=== PATIENT | female | born 1980 | race Caucasian/White ===

== ENCOUNTER 2017-12-11 19:49 | Emergency (ER) | payer OTHER ==
--- NOTE | 2017-12-11 20:07 | PDOC ---
Rapid Medical Evaluation Chief Complaint: Rash Time Seen by Provider: 12/11/17 20:03 Medical Evaluation: 12/11/17 20:05 I have performed a brief in person evaluation of this patient. The patient presents with a CC of: Rash HPI: Pt is a 37 YO female who states over the past 2 weeks she has had a pruritic rash x 2 weeks. She denies changes in soaps, lotions, laundry detergents and foods. Denies pain. PE: Skin: Diffuse maculopapular lesions on the UEs. No signs of secondary infection. Heart: RRR Lungs: Clear MS: Moves all extremities without difficulty Neuro: Appropriate affect Psych: appropriate affect I have ordered: nothing ordered at this time. The patient will proceed to the ED for further evaluation. Discharge Disposition - Diagnosis Rash - Referrals - Patient Instructions - Post Discharge Activity
[2017-12-11 20:13] VITALS: BP 124/76; PULSE 64; TEMP 98.6; BMI 35.9
--- NOTE | 2017-12-11 21:05 | PDOC ---
History of Present Illness - General Chief Complaint: Rash Stated Complaint: RASH Time Seen by Provider: 12/11/17 20:03 - History of Present Illness Initial Comments: 12/11/17 21:03 37-year-old female without comorbidities presents for evaluation of rash 2 weeks without associated symptoms. Past History - Past Medical History Allergies/Adverse Reactions: Allergies Allergy/AdvReac Type Severity Reaction Status Date / Time No Known Allergies Allergy Verified 12/11/17 20:08 Home Medications: Ambulatory Orders Methylprednisolone [Medrol Dose Kalin] 4 mg PO ASDIR #21 tablet 12/11/17 COPD: No - Suicide/Smoking/Psychosocial Hx Smoking History: Never smoked Have you smoked in the past 12 months: No Information on smoking cessation initiated: No Hx Alcohol Use: No Drug/Substance Use Hx: No Substance Use Type: None Review of Systems - Review of Systems Integumentary: Yes: Pruritus, Rash All Other Systems: Reviewed and Negative *Physical Exam - Vital Signs Last Vital Signs Temp Pulse Resp BP Pulse Ox 98.6 F 64 17 124/76 100 12/11/17 20:05 12/11/17 20:05 12/11/17 20:05 12/11/17 20:05 12/11/17 20:05 - Physical Exam Comments: HEAD: NC/AT EYES: Conjuntiva clear Ears: Canals and TM's normal NOSE: No d/c THROAT: Moist mucous membrances, oral pharanx clear, uvula midline NECK: Supple without adenopathy CARDIAC: S1 S2 LUNGS: CTA Full and Equal breath sounds ABDOMEN: Soft NT ND MS: Full ROM in all joints without edema NEUROLOGIC: No gross sensory or motor deficits, NVID SKIN: Normal color and temperature are raised hives on the anterior aspect of the chest left ear and back without any evidence of secondary infection 12/11/17 21:03 *DC/Admit/Observation/Transfer Diagnosis at time of Disposition: Rash, Rash due to allergy - Discharge Dispostion Disposition: HOME Condition at time of disposition: Stable Decision to Admit order: No - Prescriptions Prescriptions: Methylprednisolone [Medrol Dose Kalin] 4 mg PO ASDIR #21 tablet - Referrals Referrals: Doreen Perez MD [Staff Physician] - David Clarke MD [Staff Physician] - Lane Tian MD [Staff Physician] - Yesica Wilkins MD [Staff Physician] - Clau Hopper MD [Staff Physician] - - Patient Instructions Printed Discharge Instructions: DI for General Allergic Reactions Additional Instructions: Worsen or go unresolved. Please follow-up with the primary care provider recommended fever in one to 2 days for further evaluation and treatment options. Please start the steroid pack tomorrow take it as directed. You may also use Benadryl if needed as directed. Return to the emergency room should symptoms worsen or go unresolved. - Post Discharge Activity
== END 2017-12-11 21:09 | disposition home or self-care (01) ==
LOC: JERFT 19:49
DX: T78.40XA Allergy, unspecified, initial encounter (principal); R21 Rash and other nonspecific skin eruption
CPT/HCPCS: 99281-25

== ENCOUNTER 2018-12-26 21:57 | Emergency (ER) | payer OTHER ==
[2018-12-26 22:01] VITALS: BP 118/65; PULSE 74; TEMP 98.2; BMI 28.3
[2018-12-26] MEDS ORDERED: ACETAMINOPHEN 325 MG TABLET (FP) PO ONE (22:29)
--- NOTE | 2018-12-26 22:29 | PDOC ---
History of Present Illness - General Chief Complaint: Pain Stated Complaint: LEFT ABD PAIN Time Seen by Provider: 12/26/18 22:22 - History of Present Illness Initial Comments: The pt is a 38F w/ no reported PMH who presents for evaluation of 2 weeks of intermittent LLQ abdominal pain. The pain is sharp/cramping, non-radiating, worse with walking and urination, associated with dysuria, and not alleviated by anything she can identify. She reports having pain similar to this in the past but denies it being this severe before. She has not tried taking anything for the pain. She denies fevers/chills, chest pain, trouble breathing, N/V/C/D, hematuria, blood in her stool, vaginal bleeding/discharge LMP: 12/08/18 12/26/18 22:54 Past History - Past Medical History Allergies/Adverse Reactions: Allergies Allergy/AdvReac Type Severity Reaction Status Date / Time No Known Allergies Allergy Verified 12/11/17 20:08 Home Medications: Ambulatory Orders Methylprednisolone [Medrol Dose Kalin] 4 mg PO ASDIR #21 tablet 12/11/17 COPD: No - Psycho Social/Smoking Cessation Hx Smoking History: Never smoked Have you smoked in the past 12 months: No Hx Alcohol Use: No Drug/Substance Use Hx: No Substance Use Type: None Review of Systems - Review of Systems Able to Perform ROS?: Yes Comments:: GENERAL/CONSTITUTIONAL: No fever or chills. No weakness HEAD, EYES, EARS, NOSE AND THROAT: No change in vision. No change in hearing. No sore throat CARDIOVASCULAR: No chest pain or shortness of breath RESPIRATORY: Denies cough, hemoptysis GASTROINTESTINAL: No nausea, vomiting, diarrhea or constipation GENITOURINARY: +dysuria, denies hematuria MUSCULOSKELETAL: No joint or muscle swelling or pain. No neck or back pain SKIN: No rash NEUROLOGIC: No headache, vertigo, loss of consciousness, or change in strength/ sensation ENDOCRINE: No increased thirst. No abnormal weight change HEMATOLOGIC/LYMPHATIC: No anemia, easy bleeding, or history of blood clots ALLERGIC/IMMUNOLOGIC: No hives or skin allergy 12/26/18 22:26 Is the patient limited Croatian proficient: No *Physical Exam - Vital Signs Last Vital Signs Temp Pulse Resp BP Pulse Ox 98.2 F 74 19 118/65 98 12/26/18 21:58 12/26/18 21:58 12/26/18 21:58 12/26/18 21:58 12/26/18 21:58 - Physical Exam Comments: GENERAL: Awake, alert, and oriented to person/place/time, in no acute distress HEAD: No signs of trauma, normocephalic, atraumatic EYES: PERRLA, EOMI, sclera anicteric, conjunctiva clear ENT: Hearing grossly normal, nares patent, oropharynx clear without exudates. Moist mucosa LUNGS: No distress, speaks in full sentences, clear to auscultation bilaterally HEART: Regular rate and rhythm, normal S1 and S2, no murmurs appreciated, peripheral pulses normal and equal bilaterally ABDOMEN: Soft, LLQ TTP w/o rebound or guarding, normoactive bowel sounds EXTREMITIES: Normal inspection, Normal range of motion, no edema. No clubbing or cyanosis NEUROLOGICAL: Cranial nerves II through XII grossly intact. Normal speech, normal gait, no focal sensorimotor deficits SKIN: Warm, Dry 12/26/18 22:27 ED Treatment Course - LABORATORY CBC & Chemistry Diagram: 12/26/18 22:45 12/26/18 22:45 Medical Decision Making - Medical Decision Making The pt is a 38F w/ no reported PMH who presents for evaluation of 2 weeks of intermittent LLQ pain that is worse today Ddx: UTI/pyelo, consider nephrolithiasis, ovarian cyst, less likely ovarian torsion ED Course CMP, CBC, UA, Upreg TVUS Tylenol for symptomatic relief 12/26/18 22:28 Mild leukocytosis of 12.4, pt afebrile and non-tachy No anemia Lytes wnl No CALISTA LFTs wnl Upreg neg UA w/o evidence of UTI Pt pending US read 12/26/18 23:56 Pt signed out to night team Discharge - Discharge Information Problems reviewed: Yes Clinical Impression/Diagnosis: Abdominal pain Qualifiers: Abdominal location: left lower quadrant Qualified Code(s): R10.32 - Left lower quadrant pain Condition: Stable - Follow up/Referral Referrals: [facility] [place] [facility] [place] [Provider Group] Martha Lanza MD [Staff Physician] - - Patient Discharge Instructions Patient Printed Discharge Instructions: DI for Abdominal Pain-Adult Additional Instructions: You came into the emergency department for abdominal pain. Lab work and ultrasound did not indicate acute pathology. Prescription sent to your pharmacy. Take as instructed. You can take [id number] tylenol or motrin as needed for pain. Follow the instructions on the medication bottle. Follow-up with a primary care provider within 72 hours to discuss this ED visit and to further evaluate your symptoms. Your workup is not complete until you do so. You have been referred to the [facility] in case you do not have a primary care doctor. Call and make an appointment at the number provided. We have also referred you to an fisher pound net or trap specialist. Call and make an appointment. Your workup is not complete until you do so. Immediate medical attention is required if you develop: worsening pain, high fevers, persistent nausea, vomiting, or any new or concerning symptoms. If you think you are having an emergency, call for emergency medical services or present to the emergency department right away. ===== Llegaste al departamento de emergencias por dolor abdominal. El trabajo de laboratorio y la ecografa no indicaron patologa aguda. Receta enviada a myers farmacia. Tmelo segn las instrucciones. Puede karen tylenol o motrin de venta fabiola segn sea necesario para el dolor. Siga las instrucciones en la botella del medicamento. Simin un seguimiento con un proveedor de atencin primaria dentro de las 72 horas para analizar esta visita al servicio de urgencias y evaluar mejor nora sntomas. Myers trabajo no est completo hasta que lo simin. Lo huddleston derivado a la [facility] en janki de que no tenga un mdico de atencin primaria. Llame y simin violette jayde al nmero provisto. Tambin lo hemos referido a un especialista en obstetricia / ginecologa. Llame y simin violette jayde. Myers trabajo no est completo hasta que lo simin. Se requiere atencin mdica inmediata si desarrolla: empeoramiento del dolor, fiebre alex, nuseas persistentes, vmitos o cualquier sntoma nuevo o preocupante. Si bora que est teniendo violette emergencia, llame a los servicios mdicos de emergencia o presntese de inmediato en el departamento de emergencias. - Post Discharge Activity Work/Back to School Note: Back to Work
--- NOTE | 2018-12-26 22:31 | PDOC ---
Attending Attestation - Resident Resident Name: SaejersonSrinath - ED Attending Attestation I have performed the following: I have examined & evaluated the patient, The case was reviewed & discussed with the resident, I agree w/resident's findings & plan, Exceptions are as noted - HPI HPI: 12/26/18 22:31 38y F presents with nonradiating intermittent LLQ pain for the past several weeks. Pt notes the pain seems to be worse with walking and with trying to urinate. The pt notes the pain seems to wax and wane. There is no associated n/v , fever/chills, cp, sob, dysuria, urinary frequency, hematuria. No associated vaginal bleeding or discharge. LMP approx 12/08. exam: general: no acute distress, well appearing pulm: cta b/l card: rrr. no mrg abd: soft, mild suprapibc/llq tenderness to palpation w/o rebound ext: no edema pelvic US as documented ddx - ovarian cyst, uti, consider torsion will obtain labs, ua, US - Physicial Exam PE: 12/26/18 23:21 see abve - Medical Decision Making 12/26/18 23:21 se above
[2018-12-26 23:00] LABS: BASO % 0.6 % (0-2.0); EOS % 1.9 % (0-4.5); HEMOGLOBIN 12.8 GM/dL (10.7-15.3); MCH 26.7 pg (25.7-33.7); MCHC 32.8 g/dl (32.0-36.0); MEAN CELL VOLUME 81.7 fl (80-96); MONO % 5.5 % (3.8-10.2); RBC 4.77 M/mm3 (3.60-5.2); RDW 14.1 % (11.6-15.6); WHITE BLOOD COUNT 12.4 K/mm3 (4.0-10.0)
[2018-12-26 23:11] LABS: PH,URINE 5.5 (5.0-8.0); URINE APPEARANCE CLEAR; URINE BILIRUBIN NEGATIVE (NEGATIVE); URINE COLOR YELLOW; URINE GLUCOSE (UA) NEGATIVE (NEGATIVE); URINE KETONE NEGATIVE (NEGATIVE); URINE LEUK ESTERASE NEGATIVE (NEGATIVE); URINE NITRITE NEGATIVE (NEGATIVE); URINE PROTEIN NEGATIVE (NEGATIVE)
[2018-12-26 23:46] LABS: MEAN PLT VOLUME 10.2 fl (7.5-11.1); PLATELET COUNT 201 K/MM3 (134-434)
[2018-12-26 23:50] LABS: ALBUMIN 3.9 g/dl (3.4-5.0); BILIRUBIN,TOTAL 0.2 mg/dL (0.2-1); BLOOD UREA NITROGEN 15.5 mg/dL (7-18); CALCIUM 9.5 mg/dL (8.5-10.1); CREATININE 0.8 mg/dL (0.55-1.3); POTASSIUM 3.7 mmol/L (3.5-5.1); TOT PROT 7.5 g/dl (6.4-8.2)
--- NOTE | 2018-12-27 00:06 | PDOC ---
*Physical Exam - Vital Signs Last Vital Signs Temp Pulse Resp BP Pulse Ox 98.2 F 74 19 118/65 98 12/26/18 21:58 12/26/18 21:58 12/26/18 21:58 12/26/18 21:58 12/26/18 21:58 ED Treatment Course - LABORATORY CBC & Chemistry Diagram: 12/26/18 22:45 12/26/18 22:45 - ADDITIONAL ORDERS Additional order review: Laboratory Results 12/26/18 12/26/18 12/26/18 22:45 22:45 22:45 Sodium 140 Potassium 3.7 Chloride 104 Carbon Dioxide 29 Anion Gap 6 L BUN 15.5 Creatinine 0.8 Est GFR (CKD-EPI)AfAm 108.39 Est GFR (CKD-EPI)NonAf 93.52 Random Glucose 123 H Calcium 9.5 Total Bilirubin 0.2 AST 18 ALT 30 Alkaline Phosphatase 139 H Total Protein 7.5 Albumin 3.9 Urine Color Yellow Urine Appearance Clear Urine pH 5.5 Ur Specific [place] 1.026 Urine Protein Negative Urine Glucose (UA) Negative Urine Ketones Negative Urine Blood Negative Urine Nitrite Negative Urine Bilirubin Negative Urine Urobilinogen 1.0 Ur Leukocyte Esterase Negative Urine HCG, Qual Negative 12/26/18 22:45 RBC 4.77 MCV 81.7 MCHC 32.8 RDW 14.1 MPV 10.2 Neutrophils % 59.0 Lymphocytes % 33.0 Monocytes % 5.5 Eosinophils % 1.9 Basophils % 0.6 Medical Decision Making - Medical Decision Making Patient signed out by Dr. Mays 38yo F w/ no reported PMH who presents for evaluation of 2 weeks of intermittent LLQ abdominal pain. UA negative for infection Mild leukocytosis Pending TVUS report 12/27/18 00:06 TVUS: "FINDINGS: The uterus and endometrial stripe appear normal. Suggestion of a scar. No large ovarian cysts. Duplex Ultrasound: Appropriate arterial and/or venous flow are noted in both ovaries, making torsion unlikely at this time. No significant free pelvic fluid. Prominent adnexal vessels which can be associated with pelvic congestion" We will give toradol and discharge home 12/27/18 01:36 Discharge - Discharge Information Problems reviewed: Yes Clinical Impression/Diagnosis: Abdominal pain Qualifiers: Abdominal location: left lower quadrant Qualified Code(s): R10.32 - Left lower quadrant pain Condition: Stable Disposition: HOME - Follow up/Referral Referrals: [facility] [place] [facility] [place] [Provider Group] Martha Lanza MD [Staff Physician] - - Patient Discharge Instructions Patient Printed Discharge Instructions: DI for Abdominal Pain-Adult Additional Instructions: You came into the emergency department for abdominal pain. Lab work and ultrasound did not indicate acute pathology. Prescription sent to your pharmacy. Take as instructed. You can take [id number] tylenol or motrin as needed for pain. Follow the instructions on the medication bottle. Follow-up with a primary care provider within 72 hours to discuss this ED visit and to further evaluate your symptoms. Your workup is not complete until you do so. [facility] in case you do not have a primary care doctor. Call and make an appointment at the number provided. We have also referred you to an heater helper forge specialist. Call and make an appointment. Your workup is not complete until you do so. Immediate medical attention is required if you develop: worsening pain, high fevers, persistent nausea, vomiting, or any new or concerning symptoms. If you think you are having an emergency, call for emergency medical services or present to the emergency department right away. ===== Llegaste al departamento de emergencias por dolor abdominal. El trabajo de laboratorio y la ecografa no indicaron patologa aguda. Receta enviada a myers farmacia. Tmelo segn las instrucciones. Puede karen tylenol o motrin de venta fabiola segn sea necesario para el dolor. Siga las instrucciones en la botella del medicamento. Simin un seguimiento con un proveedor de atencin primaria dentro de las 72 horas para analizar esta visita al servicio de urgencias y evaluar mejor nora sntomas. Myers trabajo no est completo hasta que lo simin. Lo huddleston derivado a la [facility] en janki de que no tenga un mdico de atencin primaria. Llame y simin violette jayde al nmero provisto. Tambin lo hemos referido a un especialista en obstetricia / ginecologa. Llame y simin violette jayde. Myers trabajo no est completo hasta que lo simin. Se requiere atencin mdica inmediata si desarrolla: empeoramiento del dolor, fiebre alex, nuseas persistentes, vmitos o cualquier sntoma nuevo o preocupante. Si bora que est teniendo violette emergencia, llame a los servicios mdicos de emergencia o presntese de inmediato en el departamento de emergencias. - Post Discharge Activity Work/Back to School Note: Back to Work
[2018-12-27] MEDS ORDERED: KETOROLAC TROMETHAMINE 30 MG/1 ML VIAL IVPUSH ONE (01:36)
[2018-12-27] MEDS ORDERED: KETOROLAC TROMETHAMINE 30 MG/1 ML VIAL ONE (01:54)
== END 2018-12-27 02:24 | disposition home or self-care (01) ==
LOC: JER 21:57
PROC: 3E0333Z Introduction of Anti-inflammatory into Peripheral Vein, Percutaneous Approach (ICD-10-PCS; principal; 2018-12-26)
DX: R10.32 Left lower quadrant pain (principal)
CPT/HCPCS: 36415; 76830-TC; 80053; 81003; 84703; 85025; 87086; 99283-25

== ENCOUNTER 2019-03-07 21:16 | Emergency (ER) | payer OTHER ==
[2019-03-07 21:22] VITALS: BP 147/96; PULSE 81; TEMP 98; BMI 30.9
[2019-03-07] MEDS ORDERED: METOCLOPRAMIDE HCL INJECTION 10 MG/2 ML VIAL IVPB ONE (22:15)
[2019-03-07] MEDS ORDERED: SODIUM CHLORIDE 1,000 ML IV STA (22:15)
[2019-03-07] MEDS ORDERED: ACETAMINOPHEN 1000 MG/100 ML VIAL (NON FORMULARY) IVPB ONE (22:15)
--- NOTE | 2019-03-07 22:25 | PDOC ---
History of Present Illness - General Chief Complaint: Headache Stated Complaint: HEADACHE Time Seen by Provider: 03/07/19 21:59 History Source: Patient Exam Limitations: Language Barrier (Cyracom used) Past History - Travel Traveled outside of the country in the last 30 days: No Close contact w/someone who was outside of country & ill: No - Past Medical History Allergies/Adverse Reactions: Allergies Allergy/AdvReac Type Severity Reaction Status Date / Time No Known Allergies Allergy Verified 03/07/19 21:21 Home Medications: Ambulatory Orders Methylprednisolone [Medrol Dose Kalin] 4 mg PO ASDIR #21 tablet 12/11/17 COPD: No - Reproductive History Para: 2 - Psycho Social/Smoking Cessation Hx Smoking History: Never smoked Have you smoked in the past 12 months: No Hx Alcohol Use: No Drug/Substance Use Hx: No Substance Use Type: None Review of Systems - Review of Systems Able to Perform ROS?: Yes Comments:: 03/07/19 22:32 CONSTITUTIONAL: Absent: fever, chills, diaphoresis, generalized weakness, malaise, loss of appetite HEENT: Absent: rhinorrhea, nasal congestion, throat pain, throat swelling, difficulty swallowing, mouth swelling, ear pain, eye pain, visual Changes CARDIOVASCULAR: Absent: chest pain, loss of consciousness, palpitations, irregular heart rate, peripheral edema RESPIRATORY: Absent: cough, shortness of breath, dyspnea with exertion, orthopnea, wheezing, stridor, hemoptysis GASTROINTESTINAL: Absent: abdominal pain, abdominal distension, nausea, vomiting, diarrhea, constipation, melena, hematochezia GENITOURINARY: Absent: dysuria, frequency, urgency, hesitancy, hematuria, flank pain, genital pain MUSCULOSKELETAL: Absent: myalgia, arthralgia, joint swelling SKIN: Absent: rash, itching, pallor NEUROLOGIC: Present: Headache, dizziness, phonophobia Absent: focal weakness or paresthesias, unsteady gait, seizure, mental status changes, bladder or bowel incontinence PSYCHIATRIC: Absent: anxiety, depression, suicidal or homicidal ideation, hallucinations. Is the patient limited Peruvian proficient: No *Physical Exam - Vital Signs Last Vital Signs Temp Pulse Resp BP Pulse Ox 98 F 81 18 147/96 100 03/07/19 21:19 03/07/19 21:19 03/07/19 21:19 03/07/19 21:19 03/07/19 21:19 - Physical Exam 03/07/19 22:35 GENERAL: Well developed, well nourished. Awake and alert. Patient appears in mild distress, holding the right side of her head. HEENT: Normocephalic, atraumatic. PERRLA, EOMI. No conjunctival pallor. Sclera are non- icteric. Moist mucous membranes. Oropharynx is clear. NECK: Supple. Full ROM. No JVD. Carotid pulses 2+ and symmetric, without bruits. No thyromegaly. No lymphadenopathy. CARDIOVASCULAR: Regular rate and rhythm. No murmurs, rubs, or gallops. Distal pulses are 2+ and symmetric. PULMONARY: No evidence of respiratory distress. Lungs clear to auscultation bilaterally. No wheezing, rales or rhonchi. MUSCULOSKELETAL Normal range of motion at all joints. No bony deformities or tenderness. No CVA tenderness. EXTREMITIES: No cyanosis. No clubbing. No edema. No calf tenderness. SKIN: Warm and dry. Normal capillary refill. No rashes. No jaundice. NEUROLOGICAL: Alert, awake, appropriate. Cranial nerves 2-12 intact. No deficits to light touch and temperature in face, upper extremities and lower extremities. No motor deficits in the in face, upper extremities and lower extremities. Normoreflexic in the upper and lower extremities. Normal speech. Toes are down- going bilaterally. Gait is normal without ataxia. PSYCHIATRIC: Cooperative. Good eye contact. Appropriate mood and affect. Medical Decision Making - Medical Decision Making 03/07/19 22:36 Patient is a 39-year-old female no past medical history who presents to the ER today for headache starting approximately 4 hours ago. She states that the headache came on suddenly and is located on the right side of her head. She states that she has never gotten a headache before. She notes that she feels dizzy and like and loud sounds make the headache worse. She states that due to the headache she has been vomiting and was unable to keep Motrin down at home. She denies . Denies fevers, chills, chest pain, difficulty breathing, diarrhea, constipation, urinary symptoms. She denies sick contacts. A/P: Headache On exam patient is grossly neurologically intact with no focal deficits, however patient does localize her headache to the right side of her head. Given patient does not usually get headaches and this is sudden onset will obtain CT head to rule out head bleed. CT head will be done within 6 hours of onset of the headache. IV Tylenol, Reglan and Benadryl given for symptoms. Basic labs obtained Signout given to JULIA Patel. Patient pending labs and CT results. Discharge - Discharge Information Problems reviewed: Yes Clinical Impression/Diagnosis: Headache Qualifiers: Headache type: unspecified Headache chronicity pattern: acute headache Intractability: not intractable Qualified Code(s): R51 - Headache - Follow up/Referral - Patient Discharge Instructions - Post Discharge Activity
[2019-03-07] MEDS ORDERED: METOCLOPRAMIDE HCL INJECTION 10 MG/2 ML VIAL ONE (22:36)
[2019-03-07] MEDS ORDERED: diphenhydrAMINE HCL 12.5 MG/5 ML UNIT-DOSE CUPS ONE (22:36)
[2019-03-07] MEDS ORDERED: ALBUTEROL SO4 2.5/IPRATROPIUM 0.5 INH SOL 3 ML VIAL.NEB. NEB ONE (22:43)
[2019-03-07] MEDS ORDERED: ACETAMINOPHEN INJECTION 100 ML IVPB ONE (22:43)
[2019-03-07] MEDS ORDERED: DEXAMETHASONE SOD PHOSPHATE 10 MG/1 ML VIAL ONE (22:43)
[2019-03-07 23:09] LABS: BASO % 0.4 % (0-2.0); EOS % 1.4 % (0-4.5); HEMATOCRIT 45.2 % (32.4-45.2); HEMOGLOBIN 14.6 GM/dL (10.7-15.3); LYMPH % 19.3 % (8-40); MCH 26.8 pg (25.7-33.7); MCHC 32.3 g/dl (32.0-36.0); MEAN CELL VOLUME 82.9 fl (80-96); MEAN PLT VOLUME 10.3 fl (7.5-11.1); MONO % 5.5 % (3.8-10.2); NEUT % 73.4 % (42.8-82.8); PLATELET COUNT 224 K/MM3 (134-434); RBC 5.45 M/mm3 (3.60-5.2); RDW 15.2 % (11.6-15.6); WHITE BLOOD COUNT 11.7 K/mm3 (4.0-10.0)
[2019-03-07 23:22] LABS: INR 0.97 (0.83-1.09); PROTHROMBIN TIME (PATIENT) 11.4 SEC (9.7-13.0)
[2019-03-07 23:37] LABS: ALBUMIN 4.7 g/dl (3.4-5.0); BILIRUBIN,TOTAL 0.3 mg/dL (0.2-1); BLOOD UREA NITROGEN 14.8 mg/dL (7-18); CALCIUM 9.8 mg/dL (8.5-10.1); CREATININE 0.7 mg/dL (0.55-1.3)
--- NOTE | 2019-03-08 00:06 | PDOC ---
*Physical Exam - Vital Signs Last Vital Signs Temp Pulse Resp BP Pulse Ox 98 F 81 18 147/96 100 03/07/19 21:19 03/07/19 21:19 03/07/19 21:19 03/07/19 21:19 03/07/19 21:19 ED Treatment Course - LABORATORY CBC & Chemistry Diagram: 03/07/19 22:30 03/07/19 22:30 - ADDITIONAL ORDERS Additional order review: Laboratory Results 03/07/19 03/07/19 03/07/19 22:30 22:30 22:30 PT with INR 11.40 INR 0.97 Sodium 139 Potassium 4.0 Chloride 103 Carbon Dioxide 28 Anion Gap 8 BUN 14.8 Creatinine 0.7 Est GFR (CKD-EPI)AfAm 126.49 Est GFR (CKD-EPI)NonAf 109.14 Random Glucose 97 Calcium 9.8 Total Bilirubin 0.3 AST 17 ALT 29 Alkaline Phosphatase 130 H Total Protein 9.0 H Albumin 4.7 Serum , Qual Negative 03/07/19 22:30 RBC 5.45 H MCV 82.9 MCHC 32.3 RDW 15.2 MPV 10.3 Neutrophils % 73.4 D Lymphocytes % 19.3 D Monocytes % 5.5 Eosinophils % 1.4 Basophils % 0.4 - Medications Given in the ED: ED Medications Discontinued Medications Generic Name Dose Route Start Last Admin Trade Name Nile PRN Reason Stop Dose Admin Acetaminophen 1,000 mg 03/07/19 22:15 03/07/19 22:58 Ofirmev Injection - IVPB 03/07/19 22:16 1,000 mg ONCE ONE Administration Diphenhydramine HCl 12.5 mg 03/07/19 22:15 03/07/19 22:58 Benadryl Injection - IVPB 03/07/19 22:16 12.5 mg ONCE ONE Administration Sodium Chloride 1,000 mls @ 1,000 mls/hr 03/07/19 22:15 03/07/19 22:58 Normal Saline - IV 03/07/19 23:14 1,000 mls/hr ASDIR STA Administration Metoclopramide HCl 10 mg 03/07/19 22:15 03/07/19 22:58 Reglan Injection - IVPB 03/07/19 22:16 10 mg ONCE ONE Administration Medical Decision Making - Medical Decision Making Patient signed out to me by JULIA Dickens Head is negative On reassessment patient has 0 out of 10 pain Patient is feeling much improved Given CT of the head was obtained within 6 hours of onset of symptoms and it was negative, I am not suspicious for SAH 03/08/19 00:05 Discharge - Discharge Information Problems reviewed: Yes Clinical Impression/Diagnosis: Headache Qualifiers: Headache type: unspecified Headache chronicity pattern: acute headache Intractability: not intractable Qualified Code(s): R51 - Headache Condition: Improved Disposition: HOME - Admission No - Additional Discharge Information Prescription Drug Monitoring Program (I-STOP) results: I-STOP not reviewed - Follow up/Referral Referrals: Jaylene Smith MD [Staff Physician] - 2 Days Zane Weston MD [Staff Physician] - 2 Days - Patient Discharge Instructions Patient Printed Discharge Instructions: DI for Headache Additional Instructions: Thank you for choosing [facility]. It was a pleasure taking care of you. Your CT scan of the head was negative You were referred to a neurologist for further evaluation of the symptoms You are also referred to primary care doctor for continued follow-up Return to the Emergency Department if your symptoms worsen or persist, you have fever, vomiting, weakness of extremities (arms and/or legs), changes in vision or walking or other concerning symptoms. Amado por elegir el [facility]. Fue un placer cuidar de ti. Myers tomografa computarizada de la juan francisco fue negativa Fue derivado a un neurlogo para violette evaluacin adicional de los sntomas. Tambin lo derivan a un mdico de atencin primaria para un seguimiento continuo Regrese al departamento de emergencias si nora sntomas empeoran o persisten, tiene fiebre, vmitos, debilidad de las extremidades (brazos y / o piernas), cambios en la visin o al caminar u otros sntomas relacionados. Print Language: LUXEMBOURGER - Post Discharge Activity
== END 2019-03-08 00:19 | disposition home or self-care (01) ==
LOC: JER 21:16
PROC: 3E033NZ Introduction of Analgesics, Hypnotics, Sedatives into Peripheral Vein, Percutaneous Approach (ICD-10-PCS; principal; 2019-03-07)
PROC: 3E033GC Introduction of Other Therapeutic Substance into Peripheral Vein, Percutaneous Approach (ICD-10-PCS; 2019-03-07)
DX: R51 Headache (principal)
CPT/HCPCS: 36415; 70450-TC; 80053; 84703; 85025; 85610; 99282-25; J0131; J7030

== ENCOUNTER 2020-02-07 14:10 | Emergency (ER) | payer OTHER ==
[2020-02-07 14:38] VITALS: BP 150/81; PULSE 84; BMI 31.5
[2020-02-07] MEDS ORDERED: DIPHTH,PERTUSS(ACELL),TET 0.5 ML DISP.SYRIN IM ONE ×2 (15:18→15:20)
== END 2020-02-07 17:12 | disposition home or self-care (01) ==
LOC: JERFT 14:10
PROC: 0H9GXZZ Drainage of Left Hand Skin, External Approach (ICD-10-PCS; principal; 2020-02-07)
PROC: 0HQGXZZ Repair Left Hand Skin, External Approach (ICD-10-PCS; 2020-02-07)
PROC: 3E0234Z Introduction of Serum, Toxoid and Vaccine into Muscle, Percutaneous Approach (ICD-10-PCS; 2020-02-07)
DX: S60.352A Superficial foreign body of left thumb, initial encounter (principal)
CPT/HCPCS: 73140-TC-LT-FY; 90715; 99284-25

== ENCOUNTER 2021-03-05 00:47 | Emergency (ER) | payer OTHER ==
[2021-03-05 01:38] VITALS: BP 136/79; PULSE 66; TEMP 98.1; BMI 28.9
[2021-03-05] MEDS ORDERED: KETOROLAC TROMETHAMINE 30 MG/1 ML VIAL IM ONE (02:30)
[2021-03-05] MEDS ORDERED: METHOCARBAMOL 500 MG TABLET PO ONE (02:30)
[2021-03-05] MEDS ORDERED: ACETAMINOPHEN 325 MG TABLET (FP) PO ONE (02:30)
[2021-03-05] MEDS ORDERED: LIDOCAINE 5% TOPICAL PATCH TP ONE (02:34)
[2021-03-05] MEDS ORDERED: ACETAMINOPHEN 325 MG TABLET (FP) ONE (02:37)
[2021-03-05] MEDS ORDERED: KETOROLAC TROMETHAMINE 30 MG/1 ML VIAL ONE (02:37)
[2021-03-05] MEDS ORDERED: METHOCARBAMOL 500 MG TABLET ONE (02:37)
[2021-03-05] MEDS ORDERED: LIDOCAINE 5% TOPICAL PATCH ONE (02:46)
[2021-03-05] MEDS ORDERED: LIDOCAINE PATCH REMOVAL MC SCH (22:00)
== END 2021-03-05 04:59 | disposition home or self-care (01) ==
LOC: JER 00:47
PROC: 3E0233Z Introduction of Anti-inflammatory into Muscle, Percutaneous Approach (ICD-10-PCS; principal; 2021-03-05)
DX: M54.50 Low back pain, unspecified (principal)
CPT/HCPCS: 99284-25

== ENCOUNTER 2021-06-26 23:11 | Emergency (ER) | payer OTHER ==
[2021-06-26 23:21] VITALS: BP 124/81; PULSE 57; TEMP 97.4; BMI 32.1
[2021-06-27] MEDS ORDERED: ACETAMINOPHEN 325 MG TABLET (FP) PO ONE (00:30)
[2021-06-27] MEDS ORDERED: KETOROLAC TROMETHAMINE 30 MG/1 ML VIAL IVPUSH ONE (00:30)
[2021-06-27] MEDS ORDERED: LACTATED RINGERS SOLUTION 1000 ML INFUS.BAG IV ONE (00:36)
[2021-06-27] MEDS ORDERED: METOCLOPRAMIDE HCL INJECTION 10 MG/2 ML VIAL IVPUSH ONE (00:36)
[2021-06-27] MEDS ORDERED: ACETAMINOPHEN 325 MG TABLET (FP) ONE (00:48)
[2021-06-27] MEDS ORDERED: METOCLOPRAMIDE HCL INJECTION 10 MG/2 ML VIAL ONE (00:48)
[2021-06-27] MEDS ORDERED: KETOROLAC TROMETHAMINE 30 MG/1 ML VIAL ONE (00:48)
[2021-06-27 01:18] LABS: BASO % 0.5 % (0-2.0); EOS % 0.8 % (0-4.5); HEMATOCRIT 37.8 % (32.4-45.2); HEMOGLOBIN 12.6 GM/dL (10.7-15.3); LYMPH % 18.8 % (8-40); MCH 27.2 pg (25.7-33.7); MCHC 33.4 g/dl (32.0-36.0); MEAN CELL VOLUME 81.4 fl (80-96); MEAN PLT VOLUME 9.7 fl (7.5-11.1); MONO % 5.1 % (3.8-10.2); NEUT % 74.8 % (42.8-82.8); PLATELET COUNT 203 10^3/uL (134-434); RBC 4.64 M/mm3 (3.60-5.2); RDW 14.2 % (11.6-15.6); WHITE BLOOD COUNT 10.8 K/mm3 (4.0-10.0)
[2021-06-27 01:39] LABS: ALBUMIN 3.5 g/dl (3.4-5.0); BLOOD UREA NITROGEN 9.9 mg/dL (7-18); CALCIUM 8.7 mg/dL (8.5-10.1)
[2021-06-27 01:42] LABS: CREATININE 0.6 mg/dL (0.55-1.3)
[2021-06-27 01:44] LABS: BILIRUBIN,TOTAL 0.2 mg/dL (0.2-1); TOT PROT 7.1 g/dl (6.4-8.2)
== END 2021-06-27 03:06 | disposition home or self-care (01) ==
LOC: JER 23:11
PROC: 3E033GC Introduction of Other Therapeutic Substance into Peripheral Vein, Percutaneous Approach (ICD-10-PCS; principal; 2021-06-26)
DX: R51.9 Headache, unspecified (principal)
CPT/HCPCS: 36415; 80053; 84703; 85025; 99284-25

== ENCOUNTER 2022-10-29 12:08 | Emergency (ER) | payer OTHER ==
[2022-10-29 12:15] VITALS: BP 144/89; PULSE 80; RESP 16; TEMP 98.1; BMI 33.0
[2022-10-29] MEDS ORDERED: KETOROLAC TROMETHAMINE 30 MG/1 ML VIAL IM ONE (13:44)
[2022-10-29] MEDS ORDERED: METHOCARBAMOL 500 MG TABLET PO ONE (13:44)
[2022-10-29] MEDS ORDERED: LIDOCAINE 5% TOPICAL PATCH TP ONE (13:45)
[2022-10-29] MEDS ORDERED: METHOCARBAMOL 500 MG TABLET ONE (13:47)
[2022-10-29] MEDS ORDERED: LIDOCAINE 5% TOPICAL PATCH ONE (13:47)
[2022-10-29] MEDS ORDERED: KETOROLAC TROMETHAMINE 60 MG/2 ML VIAL ONE (13:47)
[2022-10-29 14:24] LABS: URINE APPEARANCE CLEAR; URINE BILIRUBIN NEGATIVE (NEGATIVE); URINE COLOR YELLOW; URINE GLUCOSE (UA) NEGATIVE (NEGATIVE); URINE KETONE NEGATIVE (NEGATIVE); URINE LEUK ESTERASE NEGATIVE (NEGATIVE); URINE NITRITE NEGATIVE (NEGATIVE); URINE PROTEIN NEGATIVE (NEGATIVE); URINE UROBILINOGEN 0.2 mg/dL (0.2-1.0)
== END 2022-10-29 15:01 | disposition home or self-care (01) ==
LOC: JERFT 12:08
PROC: 3E0233Z Introduction of Anti-inflammatory into Muscle, Percutaneous Approach (ICD-10-PCS; principal; 2022-10-29)
DX: M54.50 Low back pain, unspecified (principal); X50.0XXA Overexertion from strenuous movement or load, initial encounter; Y93.89 Activity, other specified; Y92.838 Other recreation area as the place of occurrence of the external cause
CPT/HCPCS: 81003; 84703; 87086; 99284-25

== ENCOUNTER 2023-02-17 12:25 | Emergency (ER) | payer OTHER ==
[2023-02-17 12:34] VITALS: BP 137/72; PULSE 79; RESP 18; TEMP 98; BMI 34.0
[2023-02-17] MEDS ORDERED: SODIUM CHLORIDE 0.9% 1000 ML INFUS.BAG IV ONE (13:05)
[2023-02-17] MEDS ORDERED: BENZONATATE 200 MG CAPSULE PO ONE (13:10)
[2023-02-17 13:57] LABS: BASO % 0.8 % (0-2.0); HEMATOCRIT 40.9 % (32.4-45.2); HEMOGLOBIN 13.4 GM/dL (10.7-15.3); LYMPH % 34.1 % (8-40); MCH 26.4 pg (25.7-33.7); MCHC 32.8 g/dl (32.0-36.0); MEAN CELL VOLUME 80.3 fl (80-96); MEAN PLT VOLUME 9.6 fl (7.5-11.1); MONO % 9.6 % (3.8-10.2); NEUT % 48.5 % (42.8-82.8); PLATELET COUNT 226 10^3/uL (134-434); RBC 5.09 M/mm3 (3.60-5.2); RDW 14.9 % (11.6-15.6); WHITE BLOOD COUNT 7.5 K/mm3 (4.0-10.0)
[2023-02-17 13:59] LABS: PH,URINE 6.5 (5.0-8.0); URINE APPEARANCE CLEAR; URINE BILIRUBIN NEGATIVE (NEGATIVE); URINE COLOR YELLOW; URINE GLUCOSE (UA) NEGATIVE (NEGATIVE); URINE KETONE TRACE (NEGATIVE); URINE LEUK ESTERASE NEGATIVE (NEGATIVE); URINE NITRITE NEGATIVE (NEGATIVE); URINE PROTEIN NEGATIVE (NEGATIVE)
[2023-02-17 14:01] LABS: HCG,QUALITATIVE URINE Negative
[2023-02-17 14:12] LABS: POTASSIUM 3.8 mmol/L (3.5-5.1)
[2023-02-17 14:14] LABS: ALBUMIN 3.6 g/dl (3.4-5.0); CALCIUM 8.6 mg/dL (8.5-10.1)
[2023-02-17 14:15] LABS: BLOOD UREA NITROGEN 12.3 mg/dL (7-18)
[2023-02-17] MEDS ORDERED: DEXTROMETHORPHAN/PROMETHAZINE 15 MG/6.25 MG/5 ML SYRUP PO ONE (14:16)
[2023-02-17] MEDS ORDERED: KETOROLAC TROMETHAMINE 30 MG/1 ML VIAL IM ONE (14:17)
[2023-02-17 14:18] LABS: CREATININE 0.9 mg/dL (0.55-1.3)
[2023-02-17 14:19] LABS: BILIRUBIN,TOTAL 0.3 mg/dL (0.2-1); TOT PROT 7.1 g/dl (6.4-8.2)
[2023-02-17 14:22] LABS: THROAT:GRP A STREP NOT DETECTED (NOTDETECTED)
[2023-02-17] MEDS ORDERED: KETOROLAC TROMETHAMINE 15 MG/ML VIAL ONE (14:23)
[2023-02-17] MEDS ORDERED: KETOROLAC TROMETHAMINE 15 MG/ML VIAL IVPUSH ONE (14:23)
[2023-02-17] MEDS ORDERED: ALBUTEROL SO4 2.5/IPRATROPIUM 0.5 INH SOL 3 ML VIAL.NEB. NEB ONE (15:01)
== END 2023-02-17 18:14 | disposition home or self-care (01) ==
LOC: JER 12:25
PROC: 3E03329 Introduction of Other Anti-infective into Peripheral Vein, Percutaneous Approach (ICD-10-PCS; principal; 2023-02-17)
PROC: 3E0333Z Introduction of Anti-inflammatory into Peripheral Vein, Percutaneous Approach (ICD-10-PCS; 2023-02-17)
DX: R42 Dizziness and giddiness (principal); R51.9 Headache, unspecified; R53.83 Other fatigue; J02.9 Acute pharyngitis, unspecified; R11.10 Vomiting, unspecified; R07.89 Other chest pain; J18.9 Pneumonia, unspecified organism; R05.1 Acute cough; Z20.822 Contact with and (suspected) exposure to COVID-19
CPT/HCPCS: 0241U-QW; 36415; 71046-TC-FY; 80053; 81003; 84703; 85025; 87651; 99284-25

== ENCOUNTER 2023-03-05 22:48 | Emergency (ER) | payer OTHER ==
[2023-03-05 22:57] VITALS: BP 140/76; PULSE 84; RESP 26; TEMP 98.6; BMI 34.0
[2023-03-05] MEDS ORDERED: SODIUM CHLORIDE 0.9% 500 ML INFUS.BAG IV ONE (23:57)
[2023-03-06 00:11] LABS: BASO % 0.6 % (0-2.0); EOS % 6.7 % (0-4.5); HEMOGLOBIN 11.9 GM/dL (10.7-15.3); LYMPH % 25.7 % (8-40); MCH 26.6 pg (25.7-33.7); MEAN CELL VOLUME 80.5 fl (80-96); MEAN PLT VOLUME 9.7 fl (7.5-11.1); MONO % 9.2 % (3.8-10.2); NEUT % 57.8 % (42.8-82.8); PLATELET COUNT 191 10^3/uL (134-434); RBC 4.48 M/mm3 (3.60-5.2); RDW 14.7 % (11.6-15.6)
[2023-03-06] MEDS: ALBUTEROL SO4 2.5/IPRATROPIUM 0.5 INH SOL 3 ML VIAL.NEB. NEB SCH ×4 (00:17→00:37)
[2023-03-06 00:32] LABS: CHLORIDE 109 mmol/L (98-107); POTASSIUM 3.5 mmol/L (3.5-5.1); SODIUM 141 mmol/L (136-145)
[2023-03-06 00:34] LABS: ALBUMIN 3.4 g/dl (3.4-5.0); CALCIUM 8.4 mg/dL (8.5-10.1)
[2023-03-06 00:35] LABS: ANION GAP 6 mmol/L (4-13); BLOOD UREA NITROGEN 11.3 mg/dL (7-18); CO2 26 mmol/L (21-32); GLUCOSE,RANDOM 113 mg/dL (74-106)
[2023-03-06 00:37] LABS: SGPT/ALT 20 U/L (13-61)
[2023-03-06 00:38] LABS: CREATININE 0.6 mg/dL (0.55-1.3); SGOT/AST 17 U/L (15-37)
[2023-03-06 00:39] LABS: BILIRUBIN,TOTAL 0.2 mg/dL (0.2-1); TOT PROT 6.6 g/dl (6.4-8.2)
[2023-03-06 00:42] LABS: ALK PHOS 89 U/L (45-117)
[2023-03-06 03:06] LABS: PH,URINE 5.5 (5.0-8.0); URINE APPEARANCE CLEAR; URINE BILIRUBIN NEGATIVE (NEGATIVE); URINE COLOR YELLOW; URINE GLUCOSE (UA) NEGATIVE (NEGATIVE); URINE KETONE NEGATIVE (NEGATIVE); URINE LEUK ESTERASE NEGATIVE (NEGATIVE); URINE NITRITE NEGATIVE (NEGATIVE); URINE PROTEIN NEGATIVE (NEGATIVE); URINE UROBILINOGEN 0.2 mg/dL (0.2-1.0)
[2023-03-06] MEDS ORDERED: methylPREDNISolone NA SUCC 125 MG/2 ML VIAL IVPUSH ONE (04:02)
[2023-03-06] MEDS ORDERED: methylPREDNISolone NA SUCC 125 MG/2 ML VIAL ONE (04:14)
[2023-03-06] MEDS ORDERED: ALBUTEROL SO4 HFA INHALER IH ONE ×2 (04:26→04:32)
== END 2023-03-06 05:04 | disposition home or self-care (01) ==
LOC: JER 22:48
PROC: 3E033GC Introduction of Other Therapeutic Substance into Peripheral Vein, Percutaneous Approach (ICD-10-PCS; principal; 2023-03-06)
PROC: 3E0F7GC Introduction of Other Therapeutic Substance into Respiratory Tract, Via Natural or Artificial Opening (ICD-10-PCS; 2023-03-06)
PROC: 3E0F7GC Introduction of Other Therapeutic Substance into Respiratory Tract, Via Natural or Artificial Opening (ICD-10-PCS; 2023-03-06)
DX: R06.02 Shortness of breath (principal); R05.9 Cough, unspecified; R07.89 Other chest pain; R11.10 Vomiting, unspecified; R50.9 Fever, unspecified; R06.2 Wheezing; U07.1 COVID-19; J20.9 Acute bronchitis, unspecified
CPT/HCPCS: 0241U-QW; 36415; 71275-TC; 80053; 81003; 84484; 84702; 85025; 87086; 93005; 93010; 99285-25; Q9967

== ENCOUNTER 2023-10-17 10:46 | Emergency (ER) | payer OTHER ==
[2023-10-17 10:53] VITALS: BMI 29.9
[2023-10-17] MEDS ORDERED: KETOROLAC TROMETHAMINE 30 MG/1 ML VIAL ONE (11:53)
[2023-10-17] MEDS ORDERED: FAMOTIDINE 20 MG/50 ML IVPB 20 MG/50 ML MG IVPB ONE (11:53)
[2023-10-17] MEDS: FAMOTIDINE 20 MG/50 ML IVPB 20 MG/50 ML MG IVPB ONE (11:58)
[2023-10-17] MEDS: SODIUM CHLORIDE 0.9% 500 ML INFUS.BAG IV ONE (12:00)
[2023-10-17] MEDS: KETOROLAC TROMETHAMINE 30 MG/1 ML VIAL IVPUSH ONE (12:00)
[2023-10-17 12:18] LABS: PH,URINE 5.5 (5.0-8.0); URINE APPEARANCE CLOUDY; URINE BILIRUBIN NEGATIVE (NEGATIVE); URINE COLOR YELLOW; URINE GLUCOSE (UA) NEGATIVE (NEGATIVE); URINE KETONE NEGATIVE (NEGATIVE); URINE LEUK ESTERASE NEGATIVE (NEGATIVE); URINE NITRITE NEGATIVE (NEGATIVE); URINE PROTEIN NEGATIVE (NEGATIVE); URINE UROBILINOGEN 0.2 mg/dL (0.2-1.0)
[2023-10-17 12:20] LABS: BASO % 0.9 % (0-2.0); EOS % 1.6 % (0-4.5); HEMATOCRIT 38.4 % (32.4-45.2); HEMOGLOBIN 12.5 GM/dL (10.7-15.3); MCH 26.7 pg (25.7-33.7); MCHC 32.6 g/dl (32.0-36.0); MEAN PLT VOLUME 10.2 fl (7.5-11.1); MONO % 7.6 % (3.8-10.2); NEUT % 62.9 % (42.8-82.8); PLATELET COUNT 234 10^3/uL (134-434); RBC 4.68 M/mm3 (3.60-5.2); RDW 14.9 % (11.6-15.6); WHITE BLOOD COUNT 10.3 K/mm3 (4.0-10.0)
[2023-10-17 12:21] LABS: HCG,QUALITATIVE URINE Negative
[2023-10-17 12:42] LABS: POTASSIUM 3.9 mmol/L (3.5-5.1)
[2023-10-17 12:44] LABS: CALCIUM 8.9 mg/dL (8.5-10.1)
[2023-10-17 12:45] LABS: ALBUMIN 3.8 g/dl (3.4-5.0); BLOOD UREA NITROGEN 12.2 mg/dL (7-18)
[2023-10-17 12:48] LABS: CREATININE 0.6 mg/dL (0.55-1.3)
[2023-10-17 12:50] LABS: BILIRUBIN,TOTAL 0.3 mg/dL (0.2-1)
[2023-10-17 17:57] VITALS: BP 161/84; PULSE 71; RESP 18; TEMP 98.7
== END 2023-10-17 18:05 | disposition home or self-care (01) ==
LOC: JER 10:46
PROC: 3E033GC Introduction of Other Therapeutic Substance into Peripheral Vein, Percutaneous Approach (ICD-10-PCS; principal; 2023-10-17)
PROC: 3E0333Z Introduction of Anti-inflammatory into Peripheral Vein, Percutaneous Approach (ICD-10-PCS; 2023-10-17)
DX: R10.84 Generalized abdominal pain (principal)
CPT/HCPCS: 36415; 74177-TC; 76830-TC; 80053; 81003; 83690; 84703; 85025; 87086; 99285-25; Q9967

== ENCOUNTER 2023-10-18 11:53 | Emergency (ER) | payer OTHER ==
[2023-10-18 12:10] VITALS: BP 129/81; PULSE 87; RESP 16; TEMP 97.7; BMI 34.0
[2023-10-18] MEDS ORDERED: KETOROLAC TROMETHAMINE 30 MG/1 ML VIAL ONE (12:28)
[2023-10-18] MEDS: KETOROLAC TROMETHAMINE 30 MG/1 ML VIAL IM ONE (12:34)
== END 2023-10-18 12:38 | disposition home or self-care (01) ==
LOC: JER 11:53
PROC: 3E0233Z Introduction of Anti-inflammatory into Muscle, Percutaneous Approach (ICD-10-PCS; principal; 2023-10-18)
DX: R10.2 Pelvic and perineal pain (principal); R10.30 Lower abdominal pain, unspecified
CPT/HCPCS: 99284-25